=== PATIENT | female | born 1955 | race Two or more races ===

== ENCOUNTER → 2017-01-28 | Day surgery (SDC) | payer MEDICAID ==
[~2017-01-28] MED LIST: LYRICA75 MG PO; METFORMIN HCL1000 M1 PO; [UNRECOGNIZED DRUG - OTHER] PO
--- NOTE | ~2017-01-28 | OR ---
Unit #: [id number] #: [id number] Patient: CRISTAL SHIPMAN [id number] [address] [address] [id number] O MR#: [id number] NAME: CRISTAL SHIPMAN ROOM: Date of Procedure: 01/28/2017 Admission Date: 01/28/2017 Surgeon: David Browne M.D. : 1955 Attending Physician: David Browne M.D. Primary Care Physician: Betzaida Primary Care Physician PROCEDURE OPERATIVE NOTE PROCEDURE PERFORMED EGD with biopsy. INDICATION FOR PROCEDURE Patient with recent dysphagia, underlying radiation upper endoscopy. ANESTHESIA Monitored anesthesia. POSTOPERATIVE FINDINGS 1. Mild esophagitis involving the GE junction. 2. Mild gastritis. Biopsy taken. 3. Normal duodenum with duodenal and distal duodenum. PLAN PCI therapy with precautions. PROCEDURE The patient was explained the procedure, risks and benefits. She was brought to the endoscopy room. Propofol anesthesia was given. Bite block was placed. The scope was passed down the mouth and esophagus, stomach, duodenum, and distal duodenum. Findings as described. Biopsies were taken. Gently, I pulled it out of the patient's mouth. She tolerated the procedure well. Dictated by... Barry Mclean/jaimee TD: 01/28/2017 11:31 JOB #: [id number] CC: David Browne M.D. Unit #: [id number] #: [id number] Patient: CRISTAL SHIPMAN PROCEDURE OPERATIVE NOTE Page 1 of 1 X David Browne MD X PROCEDURE OPERATIVE NOTE
== END | disposition home or self-care (01) ==
LOC: COPS 07:38
DX: K29.50 Unspecified chronic gastritis without bleeding (principal); K20.9 Esophagitis, unspecified; E11.9 Type 2 diabetes mellitus without complications; Z87.09 Personal history of other diseases of the respiratory system; Z79.84 Long term (current) use of oral hypoglycemic drugs; Z98.890 Other specified postprocedural states
CPT/HCPCS: 82947; 88305; 88312

== ENCOUNTER → 2017-01-30 | Outpatient (CLI) | payer MEDICAID ==
--- NOTE | ~2017-01-30 | US6 ---
[facility] A Service of [facility] & [facility] RADIOLOGY TEXT RESULTS PATIENT: CRISTAL SHIPMAN LOCATION: [facility] : 57 UNIT #: [id number] AGE: [address]: Lay Asencio APRN SEX: F ORDER DR: [id number] [facility] [address] [place], [place] [address] [id number] O MR#: [id number] #: [id number] NAME: CRISTAL SHIPMAN : 1955 SEX: F STUDY DATE/TIME: 01/30/2017 9:46 UNIT: [facility] ROOM: STUDY DESCRIPTION: US Abdominal Limited Attending Physician: Lay Asencio A.P.R.N. Ordering Physician: Lay Asencio A.P.R.N. Primary Care Physician: Lay Asencio A.P.R.N. MEDICAL IMAGING REPORT This report is preliminary unless electronic signature is present EXAM Right upper quadrant ultrasound, 01/30/2017 HISTORY Right upper quadrant abdominal pain and right flank pain for 1 month. Diabetes. Nausea, vomiting, abdominal distension and bloating. FINDINGS The liver demonstrates an increase in echotexture with attenuation of the ultrasound beam characteristic of fatty infiltration. No cystic or solid mass lesions were seen in the liver. The intra and extrahepatic bile ducts are not dilated. The gallbladder contains small shadowing gallstones but there is no evidence of gallbladder wall thickening or pericholecystic fluid. The common duct measures 2.0 mm. The pancreas and right kidney are normal. IMPRESSION 1. Mild fatty infiltration of the liver. 2. Cholelithiasis. Dictated by... Juve Alfredo M.D. THIS IS AN ELECTRONICALLY VERIFIED REPORT Juve Alfredo M.D. at 01/31/2017 8:09 AM Josh TD: 01/30/2017 13:19 JOB #: [id number] MEDICAL IMAGING REPORT Page 1 of 1 COPY
== END | disposition home or self-care (01) ==
LOC: CWCC 09:23
DX: R10.11 Right upper quadrant pain (principal); K76.0 Fatty (change of) liver, not elsewhere classified; K80.20 Calculus of gallbladder without cholecystitis without obstruction
CPT/HCPCS: 76705